=== PATIENT | female | born 2000 | race Two or more races ===

== ENCOUNTER 2025-01-26 16:18 | Emergency (ER) | payer SELFPAY ==
[2025-01-26 16:35] VITALS: BP 155/81; PULSE 85; RESP 18; TEMP 36.6; O2SAT 100; BMI 37.8
--- NOTE | 2025-01-26 16:45 | ED.GENADULT ---
HPI - General Adult General Chief complaint: Abdominal Pain Stated complaint: L side pain 3 days History of Present Illness HPI narrative: Patient left without complete of treatment by ED provider. Related Data Allergies Allergy/AdvReac Type Severity Reaction Status Date / Time No Known Allergies Allergy Verified 01/26/25 16:38 PMFSH Social History Social History Advance Directives: No Advance Directives Information Provided: No Do you have a plan to hurt others: No Plan Physical Exam ED Vital Signs: Vital Signs - 24 hr 01/26/25 16:35 Temperature 97.8 F Pulse Rate 85 Respiratory Rate 18 Blood Pressure 155/81 H Pulse Oximetry 100 Oxygen Delivery Method Room Air BMI result Body Mass Index 37.8 Course Course Course Narrative: RME: 24-year-old female presents to ED for left lower quadrant abdominal pain for the past 3 days with the bloating. Labs ordered Discharge Plan Discharge Clinical Impression: Abdominal pain Patient Disposition: Left W/O Completing Treatment Discharge Date/Time: 01/26/25 23:37
== END 2025-01-26 23:37 | disposition left against medical advice (07) ==
PROVIDERS: Emergency Provider Emergency Medicine
DX: R10.32 Left lower quadrant pain (principal); Z53.29 Procedure and treatment not carried out because of patient's decision for other reasons
CPT/HCPCS: 99281